=== PATIENT | female | born 1990 | race Hispanic/Latino ===

== ENCOUNTER 2017-06-04 12:42 | Inpatient (IN) | payer OTHER ==
[2017-06-04 14:06] LABS: Basophils % (Auto) 0.4 % (0.0-1.8); Eosinophils # (Auto) 0.1 K/mm3 (0.0-0.4); Eosinophils % (Auto) 0.8 % (0.0-4.3); Hematocrit 40.9 % (30.3-42.9); Hemoglobin 13.8 gm/dl (10.1-14.3); Lymphocytes # (Auto) 2.5 K/mm3 (1.2-5.4); Lymphocytes % (Auto) 24.9 % (13.4-35.0); Mean Corpuscular HGB Conc 34 % (30-34); Mean Corpuscular Hemoglobin 30 pg (28-32); Mean Corpuscular Volume 88 fl (79-97); Monocytes # (Auto) 0.8 K/mm3 (0.0-0.8); Monocytes % (Auto) 8.1 % (0.0-7.3); Platelet Count 254 K/mm3 (140-440); Red Blood Count 4.62 M/mm3 (3.65-5.03); Red Cell Distribution Width 13.9 % (13.2-15.2)
[2017-06-04 14:25] LABS: Alanine Aminotransferase 27 units/L (7-56); Albumin 4.6 g/dL (3.9-5); BUN/Creatinine Ratio 15; Blood Urea Nitrogen 9 mg/dL (7-17); Calcium 9.3 mg/dL (8.4-10.2); Hemolysis Index 11
[2017-06-04 14:48] LABS: Bilirubin,Urine NEG (Negative); Blood,Urine NEG (Negative); Color,Urine Yellow (Yellow); Protein,Urine <15 mg/dL mg/dL (Negative); Urobilinogen,Urine < 2.0 mg/dL (<2.0)
[2017-06-04 16:23] LABS: INR 0.86 (0.87-1.13); Partial Thromboplastin Time 28.6 Sec. (24.2-36.6)
--- NOTE | 2017-06-04 17:51 | Emergency Department Report ---
ED Extremity Problem HPI - General Chief complaint: Extremity Problem,Nontraumatic Stated complaint: SWELLING/PAIN LEGS POST OP Time Seen by Provider: 06/04/17 17:06 Source: patient Mode of arrival: Ambulatory Limitations: No Limitations - History of Present Illness Initial comments: Patient is a 25-year-old female who is presenting with leg and abdominal swelling and shortness of breath. 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 These were stented approximately [address] Casper vascular surgery. Patient also had embolization of her ovarian veins as well. Patient contacted Dr. Casper because for the past 2 weeks her abdominal swelling and leg swelling have returned. Patient states she also has some mild shortness of breath. Patient denies any chest pain at this time. Patient states she's been to other ERs and was told that everything was fine and she was discharged home. Patient states that there is some mild abdominal pain as well as pain in her legs that increased today her pain level at this time is a 5 out of 10. -: Gradual, week(s) (2) Location: bilateral lower extremity History of Same: Yes Severity scale (0 -10): 0 Quality: aching Consistency: constant Improves with: nothing Worsens with: nothing - Related Data Allergies Allergy/AdvReac Type Severity Reaction Status Date / Time meperidine [From Demerol] AdvReac Hives Verified 06/04/17 13:23 ED Review of Systems ROS: Stated complaint: SWELLING/PAIN LEGS POST OP Other details as noted in HPI Comment: All other systems reviewed and negative ED Past Medical Hx - Past Medical History Previous Medical History?: Yes Additional medical history: endometreosis, pelvic congestion - Surgical History Additional Surgical History: stents and coils in lower extremities by Dr. Casper at [facility], cervial ablation, L ovarian removal - Social History Smoking Status: Current Some Day Smoker Substance Use Type: None ED Physical Exam - General Limitations: No Limitations General appearance: alert, in no apparent distress - Head Head exam: Present: atraumatic, normocephalic - Eye Eye exam: Present: normal appearance - ENT ENT exam: Present: mucous membranes moist - Neck Neck exam: Present: normal inspection - Respiratory Respiratory exam: Present: normal lung sounds bilaterally. Absent: respiratory distress, wheezes, rales, rhonchi - Cardiovascular Cardiovascular Exam: Present: regular rate, normal rhythm. Absent: systolic murmur, diastolic murmur, rubs, gallop - GI/Abdominal GI/Abdominal exam: Present: soft, distended, normal bowel sounds. Absent: tenderness, guarding, rebound - Extremities Exam Extremities exam: Present: other - Back Exam Back exam: Present: normal inspection - Neurological Exam Neurological exam: Present: alert, oriented X3 - Psychiatric Psychiatric exam: Present: normal affect, normal mood - Skin Skin exam: Present: warm, dry, intact, normal color. Absent: rash ED Course Vital Signs 06/04/17 06/04/17 06/04/17 13:13 17:16 17:21 Temperature 98.8 F Pulse Rate 102 H Respiratory 20 Rate Blood Pressure 132/73 121/70 121/70 O2 Sat by Pulse 99 99 Oximetry 06/04/17 06/04/17 17:30 17:43 Temperature 98.3 F Pulse Rate Respiratory Rate Blood Pressure 116/72 O2 Sat by Pulse 98 Oximetry ED Medical Decision Making - Lab Data Result diagrams: 06/04/17 13:47 06/04/17 13:47 - Medical Decision Making Patient was seen in the emergency department by Dr. Cali and Dr. Francois with vascular surgery. They feel as though the patient most likely has a recurrence of her iliac veins stenosis. Patient is to be admitted to the hospital service so that she can receive a CTA of the chest KUB and ultrasounds of her legs. Patient is to be heparinized until ultrasound to be performed in the morning. Patient is stable for a [facility] admission. Patient be admitted to Dr. Merino at this time. Critical care attestation.: If time is entered above; I have spent that time in minutes in the direct care of this critically ill patient, excluding procedure time. ED Disposition Clinical Impression: Iliac vein thrombosis Qualifiers: Laterality: unspecified laterality Qualified Code(s): I82.429 - Acute embolism and thrombosis of unspecified iliac vein Disposition: OP ADMIT IP TO THIS HOSP Is pt being admited?: Yes Does the pt Need Aspirin: No Condition: Stable Referrals: PRIMARY CARE, [Primary Care Provider] - 3-5 Days
[2017-06-04] MEDS ORDERED: PROVENTIL IH PRN (17:54)
[2017-06-04] MEDS ORDERED: SODIUM CHLORIDE FLUSH SYRINGE 10 ML IV PRN (17:54)
[2017-06-04] MEDS ORDERED: ZOFRAN IV PRN (17:54)
--- NOTE | 2017-06-04 17:55 | History and Physical Report ---
History of Present Illness Chief complaint: My stomach and legs hurt History of present illness: 25 YO Female with May-Thurner Syndrome, Endometriosis, Nicotine Dependence presents to ED for evaluation. Pt states that she has experienced leg swelling and pain, abdominal pain , and shortness of breath over the past 2 weeks with worsening symptoms over the past 1 day. Pt states that her abdominal pain is 5/ 10, diffuse, worse with movement, constant. Pt also complains of pain in her legs that is 4-5/10. Pt denies fever, chills, CP, Palpitations, NVD, Syncope, BRBPR, Hemoptysis, prolonged travel/immobility, recent ill contacts, productive cough or recent ill contacts. Pt seen and evaluated in ED and found to have symptoms that are consistent with acute thrombosis. Vascular surgery consulted. Pt initiated on heparin drip and admitted to medical floor. Past History Past Medical History: other (May thurner syndrome, nicotine dependence) Past Surgical History: Other (BLE vascular stents and coils) Social history: , smoking Family history: no significant family history (reviewed) Medications and Allergies Allergies Allergy/AdvReac Type Severity Reaction Status Date / Time meperidine [From Demerol] AdvReac Hives Verified 06/04/17 13:23 Active Meds: Active Medications Heparin Sodium (Porcine) (Heparin) 6,000 unit IV RONI KAMILA Heparin Sodium (Porcine) 25, (000 unit/ Dextrose) 500 mls @ 26.29 mls/hr IV TITR KAMILA; Protocol Review of Systems Constitutional: no weight loss, no weight gain, no fever, no chills, no sweats Ears, nose, mouth and throat: no ear pain, no ear discharge, no tinnitis, no decreased hearing, no nose pain, no nasal congestion, no nasal discharge, no sinus pressure Breasts: no change in shape, no swelling, no mass Cardiovascular: no chest pain, no orthopnea, no palpitations, no rapid/ irregular heart beat, no edema, no syncope Respiratory: no cough with sputum, no excessive sputum, no hemoptysis, no shortness of breath, no dyspnea on exertion Gastrointestinal: abdominal pain Genitourinary Female: no pelvic pain, no flank pain, no menorrhagia, no dysuria , no urinary frequency, no urgency Menstruation: no period normal, no period heavy, no period spotting Rectal: no pain, no incontinence, no bleeding Musculoskeletal: other (leg swelling, leg pain), no neck stiffness, no neck pain , no shooting arm pain, no arm numbness/tingling, no low back pain, no shooting leg pain, no leg numbness/tingling Integumentary: no rash, no pruritis, no redness, no sores, no wounds, no jaundice Neurological: no transient paralysis, no paralysis, no weakness, no parathesias , no numbness, no tingling, no seizures, no syncope Psychiatric: no anxiety, no memory loss, no change in sleep habits, no sleep disturbances, no insomnia, no hypersomnia, no change in appetite, no change in libido, no suicidal ideation Endocrine: no cold intolerance, no heat intolerance, no polyphagia, no excessive thirst, no polydipsia, no polyuria, no nocturia Hematologic/Lymphatic: no easy bruising, no easy bleeding, no lymphadenopathy, no lymphedema Allergic/Immunologic: no urticaria, no allergic rhinitis, no wheezing, no persistent infections, no anaphylaxis, no angioedema Exam - Constitutional Vitals: Temp Pulse Resp BP Pulse Ox 98.3 F 102 H 20 116/72 98 06/04/17 17:43 06/04/17 13:13 06/04/17 13:13 06/04/17 17:30 06/04/17 17:30 General appearance: Present: no acute distress, well-nourished - EENT Eyes: Present: PERRL ENT: hearing intact, clear oral mucosa - Neck Neck: Present: supple, normal ROM - Respiratory Respiratory effort: normal Respiratory: bilateral: CTA - Cardiovascular Heart Sounds: Present: S1 & S2. Absent: rub, click - Extremities Extremities: pulses symmetrical, No edema Extremity abnormal: edema Peripheral Pulses: within normal limits - Abdominal General gastrointestinal: Present: soft, non-tender, non-distended, normal bowel sounds Female genitourinary: Present: normal - Integumentary Integumentary: Present: clear, warm, dry - Musculoskeletal Musculoskeletal: gait normal, strength equal bilaterally - Psychiatric Psychiatric: appropriate mood/affect, intact judgment & insight, agitated - Neurologic Neurologic: CNII-XII intact, moves all extremities Results - Labs CBC & Chem 7: 06/04/17 13:47 06/04/17 13:47 Labs: Abnormal lab results 06/04/17 06/04/17 06/04/17 Range/Units 13:47 13:47 15:53 [place] % (Auto) 8.1 H (0.0-7.3) % PT 12.1 L (12.2-14.9) Sec. INR 0.86 L (0.87-1.13) Sodium 136 L (137-145) mmol/L Creatinine 0.6 L (0.7-1.2) mg/dL Assessment and Plan - Patient Problems (1) May-Thurner syndrome Current Visit: Yes Status: Acute Plan to address problem: Vascular surgery consulted, Heparin drip protocol, BLE Duplex, CTA Chest, serial physical exam. (2) Nicotine dependence Current Visit: Yes Status: Acute Qualifiers: Substance use status: in withdrawal Plan to address problem: Pt counseled regarding smoking cessation. (3) DVT prophylaxis Current Visit: Yes Status: Acute
[2017-06-04] MEDS ORDERED: HEPARIN IV SCH (18:00)
[2017-06-04] MEDS ORDERED: HEPARIN 25,000 UNIT in D5W 497.5 ML IV SCH (18:00)
--- NOTE | 2017-06-04 18:15 | Consultation ---
History of Present Illness - Reason for Consult Consult date: 06/04/17 shortness of breath, lower extremity swelling or 2 weeks Requesting physician: AUBRIE MAC - History of Present Illness Roque is a 26-year-old female who has a diagnosis of endometriosis for which she had undergone multiple surgical procedures without relief. Proximally 9 months ago she was seen by Dr. 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 This resulted in sustained relief of her symptoms until approximately 2 weeks ago when she developed abdominal bloating lower extremity swelling intermittent shortness of breath and dyspnea on exertion. She was seen and several emergency room elsewhere without significant treatment any viable diagnosis being rendered. She contacted our office and because of the concern for potential pulmonary embolism we requested that she present to the emergency room for further workup. The hospitalist and evaluated her and if consider for admission for possible pulmonary embolus and we were consulted to render further opinions and potential care. Past History Past Medical History: other (May thurner syndrome, nicotine dependence, episodes of syncope and presyncope) Past Surgical History: Other (laparoscopic FACE PAINTER surgery for endometriosis, endometrial ablation, iliac venous stents, ovarian vein ablation) Social history: , smoking Family history: no significant family history (reviewed) Medications and Allergies Allergies Allergy/AdvReac Type Severity Reaction Status Date / Time meperidine [From Demerol] AdvReac Hives Verified 06/04/17 13:23 Active Meds: Active Medications Acetaminophen (Tylenol) 650 mg PO Q4H PRN PRN Reason: Pain MILD(1-3)/Fever >100.5/NOEL Albuterol (Proventil) 2.5 mg IH Q4HRT PRN PRN Reason: Shortness Of Breath Heparin Sodium (Porcine) (Heparin) 6,000 unit IV RONI KAMILA Heparin Sodium (Porcine) 25, (000 unit/ Dextrose) 500 mls @ 26.29 mls/hr IV TITR KAMILA; Protocol Ondansetron HCl (Zofran) 4 mg IV Q8H PRN PRN Reason: Nausea And Vomiting Sodium Chloride (Sodium Chloride Flush Syringe 10 Ml) 10 ml IV BID KAMILA Sodium Chloride (Sodium Chloride Flush Syringe 10 Ml) 10 ml IV PRN PRN PRN Reason: LINE FLUSH Review of Systems Constitutional: weight loss, weight gain, fatigue, chronic pain Cardiovascular: edema, syncope, lightheadedness, shortness of breath, other ( episodic hypotension) Respiratory: dyspnea on exertion Gastrointestinal: dyspepsia/bloating Genitourinary Female: dyspareunia Menstruation: ammenorrhea Musculoskeletal: leg numbness/tingling Neurological: syncope Psychiatric: anxiety, sleep disturbances, insomnia Exam - Physical Exam Narrative exam: She is an alert oriented 26-year-old female in no acute distress. HEENT examination is normal with anicteric sclerae and normal dentition. Neck is without bruits soft and supple. Upper extremity pulses are equal and full. No significant swelling in the left arm. Lungs are clear to auscultation and percussion no rales or rhonchi. Cardiac examination reveals no murmurs with a regular rate and rhythm. Abdomen is soft slightly protuberant without hepatosplenomegaly. I can detect no real distention. No fluid wave. Femoral pulses are present. Lower extremity show 1+ edema with some minor violaceous discoloration consistent with venous congestion. No varicose veins. Pedal pulses are normal. - Constitutional Vitals: Temp Pulse Resp BP Pulse Ox 98.3 F 102 H 20 116/72 98 06/04/17 17:43 06/04/17 13:13 06/04/17 13:13 06/04/17 17:30 06/04/17 17:30 Results - Labs CBC & Chem 7: 06/04/17 13:47 06/04/17 13:47 Labs: Abnormal lab results 06/04/17 06/04/17 06/04/17 Range/Units 13:47 13:47 15:53 [place] % (Auto) 8.1 H (0.0-7.3) % PT 12.1 L (12.2-14.9) Sec. INR 0.86 L (0.87-1.13) Sodium 136 L (137-145) mmol/L Creatinine 0.6 L (0.7-1.2) mg/dL Assessment and Plan Assessments: #1 current lower extremity swelling consistent with her pre-stenting condition suggests either stent collapse of deformity or thrombosis of her iliac stents #2 dyspnea on exertion and shortness of breath suggests pulmonary embolism possibly from in-stent thrombus #3 anxiety-not currently out of control Recommendations: #1 admit to the hospital placed on intravenous heparin drip #2 CTA of the chest-pulmonary embolism protocol #3 KUB (plain Xray films of the abdomen) to evaluate stent configuration #4 venous duplex of the lower extremities, iliac veins, and inferior vena cava #5 d-dimer level Further recommendations will depend upon the results of the above tests.
--- NOTE | 2017-06-04 19:55 | XRay Report ---
FINAL REPORT EXAM: XR ABDOMEN 1V AP HISTORY: abd swelling TECHNIQUE: Supine AP view of the abdomen. PRIORS: None. FINDINGS: The bowel gas pattern appears normal. The bones are unremarkable. There are bilateral vascular stents and vascular coils. IMPRESSION: Normal bowel gas pattern.
--- NOTE | 2017-06-04 20:40 | Cat Scan Report ---
FINAL REPORT EXAM: CT ANGIO CHEST HISTORY: dyspnea, hx of clotting disorder TECHNIQUE: High-resolution helical axial images were obtained of the chest during intravenous administration of iodinated contrast. Images are reconstructed in the sagittal and coronal planes. PRIORS: None. FINDINGS: There is no evidence of pulmonary embolism, the pulmonary arteries opacify normally. There is residual thymic tissue in the anterior mediastinum. The heart and thoracic aorta appear normal. The lungs are clear. Images through the upper abdomen are unremarkable. The bones are unremarkable. There is a 9 x 12 x 11 nodular breast lesion in the right upper inner quadrant with lobular well-defined margins. IMPRESSION: 1. No evidence of pulmonary embolism. 2. No acute findings in the chest 3. Incidental 9 x 12 x 11 right upper inner quadrant nodular breast lesion most likely represents a fibroadenoma. Further evaluation with ultrasound is recommended on a routine basis.
[2017-06-04] MEDS: SODIUM CHLORIDE FLUSH SYRINGE 10 ML IV SCH (21:34)
[2017-06-05] MEDS: TYLENOL PO PRN ×2 (00:04→13:31)
[2017-06-05] MEDS ORDERED: PERCOCET 5/325 PO PRN (00:33)
[2017-06-05] MEDS ORDERED: HEPARIN 10,000 UNITS/10 ML IV ONE (06:53)
[2017-06-05 09:05] VITALS: BP 94/38
[2017-06-05] MEDS: SODIUM CHLORIDE FLUSH SYRINGE 10 ML IV SCH (09:54)
--- NOTE | 2017-06-05 10:18 | Progress Note ---
Assessment and Plan Assessment and plan: May-Thurner syndrome. Vascular surgery following. CT of the chest negative. Follow-up lower extremity ultrasound. Patient currently on heparin drip. Nicotine dependence. Patient counseled regarding smoking cessation. History of endometriosis. History Interval history: No new issues overnight. Hospitalist Physical - Constitutional Vitals: Temp Pulse Resp BP Pulse Ox 97.7 F 71 18 94/38 100 06/05/17 07:00 06/05/17 07:00 06/05/17 07:00 06/05/17 07:00 06/05/17 07:00 General appearance: Present: no acute distress, well-nourished - EENT Eyes: Present: PERRL, EOM intact ENT: hearing intact, clear oral mucosa, dentition normal - Neck Neck: Present: supple, normal ROM - Respiratory Respiratory effort: normal Respiratory: bilateral: CTA - Cardiovascular Rhythm: regular Heart Sounds: Present: S1 & S2. Absent: gallop, rub - Extremities Extremities: no ischemia, No edema, Full ROM - Abdominal General gastrointestinal: soft, non-tender, non-distended, normal bowel sounds - Integumentary Integumentary: Present: clear, warm, dry - Neurologic Neurologic: CNII-XII intact, moves all extremities Results - Labs CBC & Chem 7: 06/04/17 13:47 06/04/17 13:47 Labs: Laboratory Last Values WBC 9.9 K/mm3 (4.5-11.0) 06/04/17 13:47 RBC 4.62 M/mm3 (3.65-5.03) 06/04/17 13:47 Hgb 13.8 gm/dl (10.1-14.3) 06/04/17 13:47 Hct 40.9 % (30.3-42.9) 06/04/17 13:47 MCV 88 fl (79-97) 06/04/17 13:47 MCH 30 pg (28-32) 06/04/17 13:47 MCHC 34 % (30-34) 06/04/17 13:47 RDW 13.9 % (13.2-15.2) 06/04/17 13:47 Plt Count 254 K/mm3 (140-440) 06/04/17 13:47 Lymph % (Auto) 24.9 % (13.4-35.0) 06/04/17 13:47 [place] % (Auto) 8.1 % (0.0-7.3) H 06/04/17 13:47 Eos % (Auto) 0.8 % (0.0-4.3) 06/04/17 13:47 Baso % (Auto) 0.4 % (0.0-1.8) 06/04/17 13:47 Lymph # 2.5 K/mm3 (1.2-5.4) 06/04/17 13:47 [place] # 0.8 K/mm3 (0.0-0.8) 06/04/17 13:47 Eos # 0.1 K/mm3 (0.0-0.4) 06/04/17 13:47 Baso # 0.0 K/mm3 (0.0-0.1) 06/04/17 13:47 Seg Neutrophils % 65.8 % (40.0-70.0) 06/04/17 13:47 Seg Neutrophils # 6.5 K/mm3 (1.8-7.7) 06/04/17 13:47 PT 12.1 Sec. (12.2-14.9) L 06/04/17 15:53 INR 0.86 (0.87-1.13) L 06/04/17 15:53 APTT 28.6 Sec. (24.2-36.6) 06/04/17 15:53 D-Dimer 159.8 ng/mlDDU (0-234) 06/04/17 17:57 Heparin Anti-Xa Level < 0.10 U.I./ml (0.3-0.7) L 06/05/17 05:52 Sodium 136 mmol/L (137-145) L 06/04/17 13:47 Potassium 3.9 mmol/L (3.6-5.0) 06/04/17 13:47 Chloride 98.1 mmol/L (98-107) 06/04/17 13:47 Carbon Dioxide 25 mmol/L (22-30) 06/04/17 13:47 Anion Gap 17 mmol/L 06/04/17 13:47 BUN 9 mg/dL (7-17) 06/04/17 13:47 Creatinine 0.6 mg/dL (0.7-1.2) L 06/04/17 13:47 Estimated GFR > 60 ml/min 06/04/17 13:47 BUN/Creatinine Ratio 15 % 06/04/17 13:47 Glucose 79 mg/dL (65-100) 06/04/17 13:47 Calcium 9.3 mg/dL (8.4-10.2) 06/04/17 13:47 Total Bilirubin 0.40 mg/dL (0.1-1.2) 06/04/17 13:47 AST 25 units/L (5-40) 06/04/17 13:47 ALT 27 units/L (7-56) 06/04/17 13:47 Alkaline Phosphatase 36 units/L (35-129) 06/04/17 13:47 NT-Pro-B Natriuret Pep 23.99 pg/mL (0-450) 06/04/17 15:53 Total Protein 7.3 g/dL (6.3-8.2) 06/04/17 13:47 Albumin 4.6 g/dL (3.9-5) 06/04/17 13:47 Albumin/Globulin Ratio 1.7 % 06/04/17 13:47 HCG, Qual Negative (Negative) 06/04/17 13:47 Urine Color Yellow (Yellow) 06/04/17 Unknown Urine Turbidity Clear (Clear) 06/04/17 Unknown Urine pH 7.0 (5.0-7.0) 06/04/17 Unknown Ur Specific [place] 1.011 (1.003-1.030) 06/04/17 Unknown Urine Protein <15 mg/dl mg/dL (Negative) 06/04/17 Unknown Urine Glucose (UA) Neg mg/dL (Negative) 06/04/17 Unknown Urine Ketones Neg mg/dL (Negative) 06/04/17 Unknown Urine Blood Neg (Negative) 06/04/17 Unknown Urine Nitrite Neg (Negative) 06/04/17 Unknown Urine Bilirubin Neg (Negative) 06/04/17 Unknown Urine Urobilinogen < 2.0 mg/dL (<2.0) 06/04/17 Unknown Ur Leukocyte Esterase Neg (Negative) 06/04/17 Unknown Urine WBC (Auto) 1.0 /HPF (0.0-6.0) 06/04/17 Unknown Urine RBC (Auto) 1.0 /HPF (0.0-6.0) 06/04/17 Unknown U Epithel Cells (Auto) 1.0 /HPF (0-13.0) 06/04/17 Unknown
--- NOTE | 2017-06-05 14:42 | Progress Note ---
Assessment and Plan Patient with complaints of shortness of breath on admission that has improved since starting heparin drip however there was no evidence of pulmonary embolus. Her bilateral lower extremity edema has improved since admission. Her venous stents are patent however there likely compromise with narrowing from stenosis versus compression. The patient has a history of severe endometriosis. We are ordering a CT of her abdomen and pelvis to evaluate for possible intra- abdominal process that may be contributing to her symptoms. We'll likely proceed with a venogram and possible venoplasty for stents on Thursday. Subjective Date of service: 06/05/17 Interval history: The patient states that her breathing has improved significantly. She is complaining of severe constant headaches. She has no other complaints at this time. Objective - Constitutional Vitals: Vital Signs - 12hr 06/05/17 06/05/17 06/05/17 04:23 07:00 10:00 Temperature 98.0 F 97.7 F Pulse Rate 55 L 71 Respiratory 16 18 Rate Blood Pressure 93/46 Blood Pressure 94/38 [Left] O2 Sat by Pulse 99 100 99 Oximetry General appearance: Present: no acute distress - Neck Neck: supple - Respiratory Respiratory effort: normal - Breasts Breasts: deferred - Cardiovascular Rhythm: regular Extremities: no ischemia, pulses intact, normal temperature Extremity abnormal: edema (minimal edema in bilateral lower extremities) - Integumentary Integumentary: clear - Labs CBC & Chem 7: 06/04/17 13:47 06/04/17 13:47 Labs: Abnormal lab results 06/04/17 06/05/17 Range/Units 15:53 05:52 PT 12.1 L (12.2-14.9) Sec. INR 0.86 L (0.87-1.13) Heparin Anti-Xa Level < 0.10 L (0.3-0.7) U.I./ml - Imaging and cardiology CT scan - chest: image reviewed (no evidence of pulmonary embolus) US - abdomen: image reviewed (bilateral venous stents patent)
--- NOTE | 2017-06-05 15:33 | Cat Scan Report ---
CTA of the abdomen and pelvis: Venous stents for evaluation of patency. Following IV contrast administration sections are obtained during the arterial phase as well as delayed images for the venous phase. Coronal and sagittal 2-D reformatted images included. The visualized lungs are clear. The stomach is distended with food stuffs. The gallbladder is contracted. Surgical coils are located anterior to the left psoas margin and somewhat lower anterior to the right psoas margin. The partially opacified bowel and mesentery appear generally unremarkable. The abdominal aorta and iliofemoral arteries are patent. There are bilateral iliac vein stents. The femoral veins are not distended. Sections of the pelvis demonstrates a 5.2 cm multiloculated mass interposed between the right uterus and bladder containing multiple relatively low attenuation masses as well as an enhancing ring mass. Delay images demonstrate blood flow through both iliofemoral veins and IVC. No filling defects noted. Impressions: 1. Patent bilateral iliac venous stents. 2. Right adnexal mass most likely representing cystic ovary.
== END 2017-06-05 20:01 | disposition home or self-care (01) | DRG 301 ==
LOC: ED 12:42 → 3A 17:54
PROVIDERS: ADMIT Internal Medicine; ATTEND Hospitalist
DX: I87.1 Compression of vein (principal); R10.9 Unspecified abdominal pain; F17.210 Nicotine dependence, cigarettes, uncomplicated
CPT/HCPCS: 36415; 71275; 74018; 74174; 80053; 81001; 83880; 84703; 85025; 85379; 85520; 85610; 85730; 93970; 93979; 94760; J1644; J7060; Q9967

== ENCOUNTER 2017-07-08 08:07 | Day surgery (SDC) | payer MEDICAID, OTHER ==
[~2017-07-08 08:07] MED LIST: ANCEF/STERILE WATER 2 GM/20 ML 2 GM/20 ML SYRINGE IV NR; NACL 0.9% 1000 ML 1,000 ML IV SCH
[2017-07-08 08:59] LABS: INR 0.9 (0.87-1.13)
[2017-07-08] MEDS ORDERED: HEPARIN 10,000 UNITS/10 ML ONE (09:41)
[2017-07-08] MEDS ORDERED: HEPARIN/NS 5000 UNIT/500ML(CATH LAB) 1,000 ML IR ONE (09:41)
[2017-07-08] MEDS ORDERED: NACL 0.9% 500 ML 500 ML ONE (09:42)
[2017-07-08] MEDS ORDERED: ANCEF/STERILE WATER 2 GM/20 ML 0 GM/0 ML SYRINGE IV ONE (09:42)
[2017-07-08] MEDS: XYLOCAINE 2% INFILTRATI ONE ×3 (10:14→10:19)
[2017-07-08] MEDS: SUBLIMAZE ONE ×3 (10:14→10:24)
[2017-07-08] MEDS: VERSED ONE ×3 (10:14→10:24)
[2017-07-08] MEDS ORDERED: DILAUDID ONE (10:25)
[2017-07-08] MEDS ORDERED: TORADOL ONE (10:26)
[2017-07-08] MEDS ORDERED: VERSED IV ONE (10:36)
[2017-07-08] MEDS ORDERED: SUBLIMAZE ONE (10:36)
[2017-07-08] MEDS ORDERED: NORCO 5/325 ONE (11:20)
--- NOTE | 2017-07-08 11:45 | Short Stay Summary ---
Short Stay Documentation Date of service: 07/08/17 - History Principal diagnosis: Venous hypertension H&P: obtained from office Past Medical History: other (venous insufficiency, pelvic congestion syndrome) Past Surgical History: Other (prior venous intervention, prior venous embolization) Social history: no significant social history - Allergies and Medications Current Medications: Allergies meperidine [From Demerol] Adverse Reaction (Verified 06/04/17 13:23) Hives Home Medications Medication Instructions Recorded Confirmed Last Taken Type Adult Low Dose Aspirin EC 81 mg PO DAILY 07/08/17 07/08/17 07/07/17 History 81mg Tylenol /Codeine # 3 tab 1 tab PO Q4HR PRN 07/08/17 07/08/17 07/07/17 History 1 Active Medications Acetaminophen/Hydrocodone Bitart ([place] 5/325) 1 each PO ONCE ONE Stop: 07/08/17 12:01 Last Admin: 07/08/17 11:10 Dose: 1 each Cefazolin Sodium (Ancef/Sterile Water 2 Gm/20 Ml) 2 gm in 20 mls @ 80 mls/hr IV PREOP NR; Protocol Stop: 07/08/17 23:59 Sodium Chloride (Nacl 0.9% 1000 Ml) 1,000 mls @ 42 mls/hr IV DIRECT KAMILA - Physical exam General appearance: no acute distress Integumentary: no rash, no growths HEENT: Atraumatic Lungs: Normal air movement Breasts: deferred Heart: Regular rate Gastrointestinal: normal Female Genitourinary: deferred Rectal Exam: deferred Extremities: abnormal (BLE edema) Neurological: Normal gait, Normal speech - Brief post op/procedure progress note Date of procedure: 07/08/17 Pre-op diagnosis: venous hypertension Post-op diagnosis: same Procedure: BLE venogram and venous stent placement Anesthesia: local Surgeon: SREE SIDDIQUI Estimated blood loss: none Condition: stable - Disposition Condition at discharge: Good Disposition: DC-01 TO HOME OR SELFCARE Short Stay Discharge Plan Activity: no restrictions Weight Bearing Status: Weight Bear as Tolerated Diet: regular Wound: keep clean and dry, per your surgeon's advice Follow up with: PRIMARY CARE, [Primary Care Provider] - 7 Days
--- NOTE | 2017-07-08 11:52 | Operative Report ---
Operative Report Operative Report: EXAM: BILATERAL LOWER EXTREMITY VENOGRAM CLINICAL INDICATION: BILATERAL LOWER EXTREMITY VENOUS INSUFFICIENCY WITH SEQUELA OF VENOUS HYPERTENSION INCLUDING SWELLING AND BURNING PAIN DATE: 07/08/2017 PROCEDURE: Following an expiration of the risks, benefits and alternative; but informed consent was obtained. The patient was particularly N suite and placed in supine position on the examination table. Initial ultrasound evaluation of the groin demonstrated patent bilateral femoral veins. The patient's bilateral legs were prepped and draped in the usual sterile fashion. 1% lidocaine was used for anesthesia. Under ultrasound guidance, the right femoral vein was cannulated with a 7 cm 18- gauge needle. A 0.035 guidewire was advanced centrally. The needle was removed and a 5 Pakistani sheath placed. Access on the left was obtained in a similar fashion and a 5 Pakistani sheath placed in the left femoral vein. Contrast is injected through the indwelling sheaths and evaluation of the deep venous system performed. Previously placed stents are patent. At the distal aspect of the stents at the bifurcation, there is Gerardo beginning of both stents consistent with 60-70% stenosis bilaterally. A 5 Pakistani C2 cobra catheter was then advanced over the guidewire and used to selectively cannulate the left renal vein. Contrast was injected through the catheter to evaluate the presence of the left gonadal vein. 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 There is no transit of contrast into the left canal vein. With guidewire was advanced through both sheaths, the sheaths were upsized to 10 Pakistani sheaths bilaterally. An 18 x 90 mm wall stent was then advanced to the right sheath a second 18 x 90 mm wall stent was then advanced through the left sheath. Together the stents were advanced into the distal IVC and deployed. Images were saved to document significant degree of stenosis. The stents were then seated using first a 16 mm balloon followed by a 14 mm balloon. Placenta appointment imaging demonstrated brisk flow throughout the previously stenosed areas. The guidewire since sheaths were removed and hemostasis achieved using manual compression. A sterile dressing was then applied. The patient tolerated the procedure well. There were no immediate post procedure complications Conscious sedation was performed under the guidance of radiologic nursing. Continuous cardiopulmonary monitoring was utilized. IMPRESSION: 1) Bilateral lower extremity venogram demonstrated 60-70% stenosis at the distal end of previously placed stents in the common iliac veins. 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 2) Venoplasty and stent placement of bilateral common iliac veins with extension of the stents up into the IVC as described.
[2017-07-08] MEDS ORDERED: NORCO 5/325 PO ONE (12:00)
[2017-07-08 13:15] VITALS: BP 96/48
[2017-07-08] MEDS ORDERED: PERCOCET 5/325 PO ONE (14:00)
== END 2017-07-08 13:40 | disposition home or self-care (01) ==
LOC: CATHLABREC 08:07
PROVIDERS: ATTEND Radiology Diagnostic Radiology
DX: I87.303 Chronic venous hypertension (idiopathic) without complications of bilateral lower extremity (principal); I87.1 Compression of vein; F17.200 Nicotine dependence, unspecified, uncomplicated; Z98.890 Other specified postprocedural states
CPT/HCPCS: 36415; 37238; 37239; 75822; 76937; 85610; 85730; C1725; C1769; C1876; C1894; J1644; J1885; J2250; J3010; J7040; Q9967; J0690; J1170